=== PATIENT | female | born 1950 | race Caucasian/White ===

== ENCOUNTER 2018-12-31 08:44 | Outpatient (CLI) | payer OTHER | END 2018-12-31 15:00 | disposition home or self-care (01) | LOC: LAB 08:44 | DX: E11.9 Type 2 diabetes mellitus without complications (principal); N39.0 Urinary tract infection, site not specified; B96.89 Other specified bacterial agents as the cause of diseases classified elsewhere ==

== ENCOUNTER 2021-06-16 08:00 | Outpatient (CLI) | payer OTHER | END 2021-06-16 08:30 | disposition home or self-care (01) | LOC: PPH VACUNA 08:00 | DX: Z23 Encounter for immunization (principal) ==